=== PATIENT | male | born 1960 | race African-American/Black ===

== ENCOUNTER 2019-03-11 19:16 | Emergency (ER) | payer MEDICAID ==
[~2019-03-11] VITALS: Ht 170.2 cm; Wt 74.8 kg
[2019-03-11 23:00] VITALS: BP 133/88
== END 2019-03-11 23:40 | disposition home or self-care (01) ==
LOC: ER 19:20
DX: Z00.00 Encounter for general adult medical examination without abnormal findings (principal)
CPT/HCPCS: 71046